=== PATIENT | male | born 1960 | race Caucasian/White ===

== ENCOUNTER 2018-01-07 18:44 | Emergency (ER) | payer OTHER ==
[~2018-01-07] VITALS: Ht 188 cm; Wt 133.4 kg
[2018-01-07 18:57] VITALS: BP 131/70
[2018-01-07 22:06] VITALS: BP 132/90
== END 2018-01-07 22:06 | disposition home or self-care (01) ==
LOC: MED 18:44
DX: M79.651 Pain in right thigh (principal); R20.0 Anesthesia of skin; E03.9 Hypothyroidism, unspecified
CPT/HCPCS: 93971; 99284; Q0092; 96372